=== PATIENT | female | born 1945 | race Caucasian/White ===

== ENCOUNTER → 2016-05-10 | Outpatient (CLI) | payer MEDICARE ==
[2016-05-10 12:39] LABS: CH 30.9; HCT 36.5 % (34.0-46.0); HDW 2.12; HGB 11.9 gm/dL (11.4-16.0); MCH 30.7 pg (25.0-35.0); MCHC 32.6 g/dL (31.0-37.0); MCV 94.2 fL (80.0-100.0); RBC 3.88 m/uL (3.80-5.40); RDW 13.3 % (11.5-15.5); WBC 3.9 k/uL (3.8-10.6)
[2016-05-10 12:43] LABS: ALT 37 U/L (9-52); AST 26 U/L (14-36); Alkaline Phosphatase 63 U/L (38-126); Anion Gap 10 mmol/L; Blood Urea Nitrogen 9 mg/dL (7-17); Calcium 9.2 mg/dL (8.4-10.2); Carbon Dioxide 30 mmol/L (22-30); Chloride 99 mmol/L (98-107); Glucose 92 mg/dL (74-99); Non-African American GFR(MDRD) >60 (>60 ml/min/1.73 sqM); Potassium 3.9 mmol/L (3.5-5.1); Sodium 139 mmol/L (137-145); Total Bilirubin 0.4 mg/dL (0.2-1.3)
== END | disposition home or self-care (01) ==
LOC: LABWHC1 11:31
PROVIDERS: ATTEND Psychiatry & Neurology Neurology
DX: T45.1X5S Adverse effect of antineoplastic and immunosuppressive drugs, sequela (principal)
CPT/HCPCS: 36415; 80053; 84165; 85027

== ENCOUNTER → 2016-12-13 | Outpatient (CLI) | payer MEDICARE ==
[2016-12-13 11:19] LABS: CH 30.4; HCT 36.7 % (34.0-46.0); HDW 1.99; HGB 12.4 gm/dL (11.4-16.0); MCH 31.3 pg (25.0-35.0); MCHC 33.8 g/dL (31.0-37.0); MCV 92.7 fL (80.0-100.0); Mean Platelet Volume 7.6; RBC 3.96 m/uL (3.80-5.40); WBC 4.3 k/uL (3.8-10.6)
[2016-12-13 11:23] LABS: ALT 32 U/L (9-52); AST 25 U/L (14-36); Alkaline Phosphatase 58 U/L (38-126); Anion Gap 9 mmol/L; Blood Urea Nitrogen 15 mg/dL (7-17); Calcium 9.4 mg/dL (8.4-10.2); Carbon Dioxide 30 mmol/L (22-30); Chloride 98 mmol/L (98-107); Glucose 88 mg/dL (74-99); Non-African American GFR(MDRD) >60 (>60 ml/min/1.73 sqM); Potassium 4.6 mmol/L (3.5-5.1); Sodium 137 mmol/L (137-145); Total Bilirubin 0.3 mg/dL (0.2-1.3); Total Protein 7.7 g/dL (6.3-8.2)
== END | disposition home or self-care (01) ==
LOC: LABWHC1 10:32
PROVIDERS: ATTEND Psychiatry & Neurology Neurology
DX: G35 Multiple sclerosis (principal); T50.995A Adverse effect of other drugs, medicaments and biological substances, initial encounter
CPT/HCPCS: 36415; 80053; 85027

== ENCOUNTER → 2017-01-26 | Outpatient (CLI) | payer MEDICARE ==
--- NOTE | 2017-01-26 14:05 | MM ---
Reason for exam: screening (asymptomatic). Last mammogram was performed 1 year and 1 month ago. History: Patient is postmenopausal and has history of breast cancer at age 62. Family history of breast cancer in maternal aunt at age 68. Benign left mammotome panel of the left breast, March 21, 2008. Mastectomy of the right breast, November 16, 2007. Excisional biopsy of the right breast, November 02, 2007. Malignant right mammotome panel of the right breast, October 26, 2007. Right Mammotome Panel of the right breast, October 10, 2005. Stereotactic core biopsy of the left breast, March 03, 2000. Benign stereotactic core biopsy of the right breast, September 03, 1998. Core biopsy of the left breast. Took hormonal contraceptives for 5 years beginning at age 20. Took antineoplastic for 5 years beginning at age 62. Physical Findings: A clinical breast exam by your physician is recommended on an annual basis and results should be correlated with mammographic findings. MG 3D Diag Mammo W/Cad LT CC and MLO view(s) were taken of the left breast. Prior study comparison: January 06, 2016, left breast MG diagnostic mammo LT w CAD. December 15, 2014, left breast MG diagnostic mammo LT w CAD. Scattered calcifications with no suspicious groups. No suspicious abnormality. Right mastectomy. No significant new findings when compared with previous films. These results were verbally communicated with the patient and result sheet given to the patient on 01/26/17. ASSESSMENT: Benign, BI-RAD 2 RECOMMENDATION: Follow-up diagnostic mammogram of the left breast in 1 year.
== END | disposition home or self-care (01) ==
LOC: RADMAMWWP 12:43
PROVIDERS: ATTEND Family Medicine
DX: Z08 Encounter for follow-up examination after completed treatment for malignant neoplasm (principal); Z85.3 Personal history of malignant neoplasm of breast
CPT/HCPCS: G0206; G0279

== ENCOUNTER → 2017-06-20 | Outpatient (CLI) | payer MEDICARE ==
[2017-06-20 15:01] LABS: Basophils % (A) 1 %; Eosinophils # (A) 0.2 k/uL (0-0.7); Eosinophils % (A) 6 %; HCT 37.6 % (34.0-46.0); HGB 11.8 gm/dL (11.4-16.0); Lymphocytes # (A) 0.6 k/uL (1.0-4.8); Lymphocytes % (A) 17 %; MCH 30.5 pg (25.0-35.0); MCHC 31.4 g/dL (31.0-37.0); MCV 97.3 fL (80.0-100.0); Mean Platelet Volume 8.3; Monocytes # (A) 0.3 k/uL (0-1.0); Monocytes % (A) 8 %; Neutrophils # (A) 2.3 k/uL (1.3-7.7); Neutrophils % (A) 65 %; Platelet Count 191 k/uL (150-450); RBC 3.87 m/uL (3.80-5.40); RDW 12.8 % (11.5-15.5); WBC 3.6 k/uL (3.8-10.6)
[2017-06-20 15:19] LABS: ALT 21 U/L (9-52); AST 21 U/L (14-36); Albumin 4.3 g/dL (3.5-5.0); Alkaline Phosphatase 58 U/L (38-126); Anion Gap 10 mmol/L; Blood Urea Nitrogen 8 mg/dL (7-17); Calcium 9.7 mg/dL (8.4-10.2); Carbon Dioxide 32 mmol/L (22-30); Chloride 97 mmol/L (98-107); Glucose 111 mg/dL (74-99); Sodium 139 mmol/L (137-145); Total Bilirubin 0.2 mg/dL (0.2-1.3); Total Protein 7.4 g/dL (6.3-8.2)
[2017-06-20 15:35] LABS: T4, Free (Free Thyroxine) 0.92 ng/dL (0.78-2.19)
== END | disposition home or self-care (01) ==
LOC: LABWHC1 12:48
PROVIDERS: ATTEND Psychiatry & Neurology Neurology
DX: G35 Multiple sclerosis (principal); R42 Dizziness and giddiness; Z79.899 Other long term (current) drug therapy
CPT/HCPCS: 36415; 80053; 82306; 84439; 84443; 85025

== ENCOUNTER → 2017-12-18 | Outpatient (CLI) | payer MEDICARE ==
[2017-12-20 11:11] LABS: Albumin 4.27 g/dL (3.80-4.90); Gamma Globulin 0.72 g/dL (0.70-1.50); Protein, Total 7.2 g/dL (6.2-8.2)
== END | disposition home or self-care (01) ==
LOC: LABWHC1 13:57
PROVIDERS: ATTEND Psychiatry & Neurology Neurology
DX: D47.2 Monoclonal gammopathy (principal)
CPT/HCPCS: 36415; 84165; 86334

== ENCOUNTER → 2018-03-12 | Outpatient (CLI) | payer MEDICARE ==
--- NOTE | 2018-03-12 10:34 | MM ---
Reason for exam: additional evaluation requested from prior study. Last mammogram was performed 1 year and 1 month ago. History: Patient is postmenopausal and has history of breast cancer at age 62. Family history of breast cancer in maternal aunt at age 68. Benign left mammotome panel of the left breast, March 21, 2008. Mastectomy of the right breast, November 16, 2007. Excisional biopsy of the right breast, November 02, 2007. Malignant right mammotome panel of the right breast, October 26, 2007. Right Mammotome Panel of the right breast, October 10, 2005. Stereotactic core biopsy of the left breast, March 03, 2000. Benign stereotactic core biopsy of the right breast, September 03, 1998. Core biopsy of the left breast. Took hormonal contraceptives for 5 years beginning at age 20. Took antineoplastic for 5 years beginning at age 62. Physical Findings: Nurse did not find any significant physical abnormalities on exam. MG 3D Diag Mammo W/Cad LT CC, MLO, and ML view(s) were taken of the left breast. Prior study comparison: January 26, 2017, left breast MG 3d diag mammo w/cad LT. January 06, 2016, left breast MG diagnostic mammo LT w CAD. There are scattered fibroglandular densities. Previous mammotome biopsy in the left breast. No significant new findings when compared with previous films. These results were verbally communicated with the patient and result sheet given to the patient on 03/12/18. ASSESSMENT: Benign, BI-RAD 2 RECOMMENDATION: Follow-up diagnostic mammogram of the left breast in 1 year.
== END | disposition home or self-care (01) ==
LOC: RADMAMWWP 09:57
PROVIDERS: ATTEND Family Medicine
DX: Z08 Encounter for follow-up examination after completed treatment for malignant neoplasm (principal); Z85.3 Personal history of malignant neoplasm of breast
CPT/HCPCS: 77065; G0279; 77061

== ENCOUNTER → 2018-12-05 | Outpatient (CLI) | payer MEDICARE ==
--- NOTE | 2018-12-06 08:19 | MR ---
EXAMINATION TYPE: MR brain/cspine wo/w DATE OF EXAM: 12/05/2018 COMPARISON: MR brain dated 12/16/2014 HISTORY: Headache TECHNIQUE: Multiplanar, multisequence images of the brain and brainstem, cervical spine is performed without and with IV contrast, utilizing 7 mL intravenous Gadavist . FINDINGS: White matter signal abnormalities have progressed on inversion recovery T2-weighted sequenc es, right frontal lesion on axial image 18 in the pericallosal, periventricular region has become spencer ewhat more confluent and increased in size to approximately 2.5 cm in AP dimension by 9 mm x 15 mm ex tending into the corpus callosum compared to prior when it measured 2.1 cm x 8 mm x 10 mm. There are again noted juxtacortical and subcortical lesions, approximate number of lesions is 40-50 as compared to previous exam where 20-25 were counted. Diffusion weighted images demonstrate no evidence of a re cent infarct or other diffusion abnormality. There is no extra-axial fluid collection. The ventricu lar system and cisternal spaces are normal in size and appearance. The brain volume is age appropria te. The pituitary, cervical medullary junction, cerebellopontine angles are normal. The craniocervical ju nction appears within normal limits. Post contrast images demonstrate no abnormal enhancement. The d ural venous sinuses appear patent. The visualized sinuses are clear and the globes are intact. There is increased signal present within the temporal bones similar to prior exam. Cervical spine MRI: There is multilevel spondylosis. Loss of disc height signal is present at C4-5, C 5-6 and C6-7, there is associated spondylosis and endplate discogenic marrow signal change. Cervical cord signal is maintained. C2-3: No significant abnormality C3-4: Minimal disc bulge posteriorly, no significant central stenosis or foraminal encroachment. C4-5: Lateral extension of endplate disc complex encroaches on the left neural foramen greater than r ight, posterior extension endplate disc complex causes mild anterior mass effect on the thecal sac. N o significant central stenosis. C5-6: Vertebral joint hypertrophy contributes to cause some left-sided foraminal encroachment. Herb Grower ior extension endplate disc complex causes minimal anterior mass effect on the thecal sac. No signifi cant central stenosis C6-7: Posterior extension of endplate disc complex causes anterior mass effect on the thecal sac, mil d central stenosis. There is some left-sided foraminal encroachment. C7-T1: Unremarkable. There is no significant enhancement following contrast administration. IMPRESSION: Degenerative disc disease, multilevel foraminal encroachment. IMPRESSION: There is been progression in size of the dominant right frontal white matter lesion and n umber of the foci of hyperintensity and inversion recovery and T2-weighted sequences within the white matter as described. Persistent inflammatory changes within the temporal bones, temporal bone CT may be of benefit.
== END | disposition home or self-care (01) ==
LOC: RADMRIMAIN 14:44
PROVIDERS: ATTEND Psychiatry & Neurology Neurology
DX: G35 Multiple sclerosis (principal)
CPT/HCPCS: 70553; 72156; A9585

== ENCOUNTER → 2019-03-22 | Outpatient (CLI) | payer MEDICARE ==
--- NOTE | 2019-03-25 08:51 | MM ---
Reason for exam: additional evaluation requested from prior study. Last mammogram was performed 1 year ago. History: Patient is postmenopausal and has history of breast cancer at age 62. Family history of breast cancer in maternal aunt at age 68. Benign left mammotome panel of the left breast, March 21, 2008. Mastectomy of the right breast, November 16, 2007. Excisional biopsy of the right breast, November 02, 2007. Malignant right mammotome panel of the right breast, October 26, 2007. Right Mammotome Panel of the right breast, October 10, 2005. Stereotactic core biopsy of the left breast, March 03, 2000. Benign stereotactic core biopsy of the right breast, September 03, 1998. Core biopsy of the left breast. Took hormonal contraceptives for 5 years beginning at age 20. Took antineoplastic for 5 years beginning at age 62. Physical Findings: Nurse did not find any significant physical abnormalities on exam. MG 3D Diag Mammo W/Cad LT CC and MLO view(s) were taken of the left breast. Prior study comparison: March 12, 2018, left breast MG 3d diag mammo w/cad LT. January 26, 2017, left breast MG 3d diag mammo w/cad LT. There are scattered fibroglandular densities. Benign appearing calcifications in the left breast. No suspicious abnormality. Left biopsy marker. No significant new findings when compared with previous films. These results were verbally communicated with the patient and result sheet given to the patient on 03/22/19. ASSESSMENT: Benign, BI-RAD 2 RECOMMENDATION: Follow-up diagnostic mammogram of the left breast in 1 year.
== END | disposition home or self-care (01) ==
LOC: RADMAMWWP 15:05
PROVIDERS: ATTEND Family Medicine
DX: Z08 Encounter for follow-up examination after completed treatment for malignant neoplasm (principal); Z85.3 Personal history of malignant neoplasm of breast; Z90.11 Acquired absence of right breast and nipple
CPT/HCPCS: 77065; G0279; 77061

== ENCOUNTER → 2020-04-28 | Outpatient (CLI) | payer MEDICARE ==
--- NOTE | 2020-04-28 14:17 | MM ---
Reason for exam: additional evaluation requested from prior study. Last mammogram was performed 1 year and 1 month ago. History: Patient is postmenopausal and has history of breast cancer at age 62. Family history of breast cancer in maternal aunt at age 68. Benign left mammotome panel of the left breast, March 21, 2008. Mastectomy of the right breast, November 16, 2007. Excisional biopsy of the right breast, November 02, 2007. Malignant right mammotome panel of the right breast, October 26, 2007. Right Mammotome Panel of the right breast, October 10, 2005. Stereotactic core biopsy of the left breast, March 03, 2000. Benign stereotactic core biopsy of the right breast, September 03, 1998. Core biopsy of the left breast. Took hormonal contraceptives for 5 years beginning at age 20. Took antineoplastic for 5 years beginning at age 62. Physical Findings: Nurse did not find any significant physical abnormalities on exam. MG 3D Diag Mammo W/Cad LT CC and MLO view(s) were taken of the left breast. Prior study comparison: March 22, 2019, left breast MG 3d diag mammo w/cad LT. March 12, 2018, left breast MG 3d diag mammo w/cad LT. There are scattered fibroglandular densities. No significant new findings when compared with previous films. These results were verbally communicated with the patient and result sheet given to the patient on 04/28/20. ASSESSMENT: Benign, BI-RAD 2 RECOMMENDATION: Routine screening mammogram of the left breast in 1 year.
--- NOTE | 2020-04-28 15:05 | BD ---
EXAMINATION TYPE: Axial Bone Density DATE OF EXAM: 04/28/2020 COMPARISON: NONE CLINICAL HISTORY: 74 YR OLD FEMALE.....ICD-10 CODE: B81.0 OSTEOPOROSIS Height: 60 Weight: 156 FRAX RISK QUESTIONS: Glucocorticoids (More than 3mos): YES (Ex: prednisone, prednisolone, methylprednisolone, dexamethasone, and hydrocortisone). RISK FACTORS HISTORY OF: Family History of Osteoporosis: UNKNOWN Postmenopausal woman: YES, AT AGE 51 Lost more than 2 inches in height since high school: YES Frequent falls: [place] Hyperparathyroidism: NO Adrenal Insufficiency: NO MEDICATIONS: Prednisone or other steroids: STEROIDAL NASAL SPRAY FOR ABOUT 5-6 YRS Additional Medications: BP MEDS, XANAX, REFLUX MEDS, STATIN FOR CHOLESTEROL, VIT D AND CALCIUM Additional History: HX OF RT BREAST CANCER, MASTECTOMY, HYPERTENSION, REFLUX, CHOLESTEROL EXAM MEASUREMENTS: Bone mineral densitometry was performed using the [employer] System. Bone mineral density as measured about the Lumbar spine is: ----- L1-L4(G/cm2): 1.193 T Score Values are as follows: ----- L1: -1.2 ----- L2: -1.1 ----- L3: 1.7 ----- L4: 0.4 ----- L1-L4: 0.1 Bone mineral density FIRST BONE DENSITY......BASELINE STUDY Bone mineral density about the R hip (g/cm2): 0.907 Bone mineral density about the L hip (g/cm2): 0.910 T Score values are as follows: -----R Neck: -1.6 -----L Neck: -2.0 -----R Total: -0.8 -----L Total: -0.8 Bone mineral density BASELINE STUDY FRAX%s: THERE IS A 19.6% CHANCE FOR A MAJOR OSTEOPOROTIC FX AND A 5.6% FOR HIP.....PROBABILITY FOR FX IN 10 YRS TIME IMPRESSION: Osteopenia (T Score between -2.5 and -1). There is slightly increased risk of fracture and the patient may be considered for treatment. Re-Screen 2-5 years. NOTE: T-SCORE=SD OF THE YOUNG ADULT MEAN.
== END | disposition home or self-care (01) ==
LOC: RADMAMWWP 13:22
PROVIDERS: ATTEND Family Medicine
DX: Z08 Encounter for follow-up examination after completed treatment for malignant neoplasm (principal); M81.0 Age-related osteoporosis without current pathological fracture; M85.80 Other specified disorders of bone density and structure, unspecified site; Z85.3 Personal history of malignant neoplasm of breast
CPT/HCPCS: 77080; 77065; G0279; 77061

== ENCOUNTER → 2021-07-09 | Outpatient (CLI) | payer MEDICARE ==
--- NOTE | 2021-07-13 09:58 | MM ---
Reason for exam: screening (asymptomatic). Last mammogram was performed 1 year and 2 months ago. History: Patient is postmenopausal and has history of breast cancer at age 62. Family history of breast cancer in maternal aunt at age 68. Benign left mammotome panel of the left breast, March 21, 2008. Mastectomy of the right breast, November 16, 2007. Excisional biopsy of the right breast, November 02, 2007. Malignant right mammotome panel of the right breast, October 26, 2007. Right Mammotome Panel of the right breast, October 10, 2005. Stereotactic core biopsy of the left breast, March 03, 2000. Benign stereotactic core biopsy of the right breast, September 03, 1998. Core biopsy of the left breast. Took hormonal contraceptives for 5 years beginning at age 20. Took antineoplastic for 5 years beginning at age 62. Physical Findings: A clinical breast exam by your physician is recommended on an annual basis and results should be correlated with mammographic findings. MG 3D Scr Jerrica Unilateral W/Cad CC and MLO view(s) were taken of the left breast. Prior study comparison: April 28, 2020, left breast MG 3d diag mammo w/cad LT. March 22, 2019, left breast MG 3d diag mammo w/cad LT. There are scattered fibroglandular densities. Benign appearing calcifications in the left breast. Previous mammotome biopsy in the left breast. No significant changes when compared with prior studies. ASSESSMENT: Benign, BI-RAD 2 RECOMMENDATION: Routine screening mammogram of the left breast in 1 year.
== END | disposition home or self-care (01) ==
LOC: RADMAMWWP 14:04
PROVIDERS: ATTEND Internal Medicine
DX: Z12.31 Encounter for screening mammogram for malignant neoplasm of breast (principal)
CPT/HCPCS: 77067

== ENCOUNTER → 2022-09-29 | Outpatient (CLI) | payer MEDICARE ==
--- NOTE | 2022-09-29 15:08 | MR ---
EXAMINATION TYPE: MR brain wo/w con DATE OF EXAM: 09/29/2022 1:33 PM CLINICAL INDICATION:Female, 77 years old with history of G35 MULTIPLE SCLEROSIS; Left shoulder pain a nd limited range of motion due to pushing injury at work. COMPARISON: 03/27/2015 TECHNIQUE: Multi planar, multi sequence imaging was performed through the brain including: T1, T2, In version recovery, susceptibility weighted imaging and gradient echo imaging and Diffusion weighted im aging. The patient was then given intravenous contrast and multi planar, T1 fat-saturation images wer e obtained. IV Contrast: 7 cc Gadavist FINDINGS: Scattered white matter changes throughout the brain. Overall many of these white matter changes appea r slightly larger than prior. Example includes left frontal lobe 4 mm, previously 2-3 mm series 702 i mage 25 left frontal lobe 5 mm, previously 3 mm image 24 right periventricular white matter measuring 9 mm, previously 7 mm image 22 right frontal lobe 5 mm, previously 2 mm image 20. Additional scatter ed foci throughout the brain. The whitfield-white junctions, ventricular system, basal cisterns appear unremarkable. Diffusion-weighted imaging shows no evidence of restricted diffusion to suggest acute/subacute infarct. Intracranial art erial flow voids are maintained. Midline structures show no abnormality. The susceptibility weighted images do not reveal any evidence for micro-hemorrhage. After administration of gadolinium, no abnor mal enhancement is seen. The bone marrow signal is within normal limits. Paranasal sinuses and mastoid air cells: No significant paranasal sinus disease. Visualized orbits: Bilateral aphakia IMPRESSION: 1. Mild progression of white matter changes compared to 2014, compatible with known multiple scleros is. No evidence of active demyelination on today's exam. 2. No evidence of intracranial mass, acute/subacute infarct, or abnormal enhancement.
== END | disposition home or self-care (01) ==
LOC: RADMRIMAIN 12:00
PROVIDERS: ATTEND Psychiatry & Neurology Neurology
DX: G35 Multiple sclerosis (principal)
CPT/HCPCS: 70553; A9585

== ENCOUNTER → 2022-10-04 | Outpatient (CLI) | payer MEDICARE ==
--- NOTE | 2022-10-05 10:55 | MM ---
Reason for Exam: Screening (asymptomatic). Last mammogram was performed 1 year(s) and 2 month(s) ago. Patient History: Menarche at age 14. First Full-Term at age 20. Postmenopausal. Breast cancer, age 62. Hormonal Contraceptives for 5 years from age 20 until age 25. 11/16/2007, Mastectomy on the Right side. 11/02/2007, Excisional Biopsy on the Right side. Core Biopsy on the Left side. 03/21/2008, Benign Core Biopsy on the left side. 10/26/2007, Malignant Core Biopsy on the right side. 10/10/2005, Core Biopsy on the Right side. 03/03/2000, Stereotactic Core Biopsy on the Left side. 09/03/1998, Benign Stereotactic Core Biopsy on the right side. Maternal aunt had breast cancer, age 68. Prior Study Comparison: 03/22/2019 Left Diagnostic Mammogram, [facility]. 04/28/2020 Left Diagnostic Mammogram, [facility]. 07/09/2021 Bilateral Screening Mammogram, [facility]. Tissue Density: Left: There are scattered fibroglandular densities. Findings: There are 2 biopsy clips in the left breast redemonstrated. There are benign-appearing tiny rounded and vascular calcification in the left breast redemonstrated. There is no suspicious new group of microcalcifications or new suspicious mass in the left breast. Overall Assessment: Benign, BI-RAD 2 Management: Screening Mammogram of the left breast in 1 year. . Patient should continue monthly self-breast exams. A clinical breast exam by your physician is recommended on an annual basis. This exam should not preclude additional follow-up of suspicious palpable abnormalities. Note on Bree scores and lifetime risk: 1. A Bree score greater than 3% is considered moderate risk. If this is the case, consider specialist referral to assess eligibility for a risk reducing agent. 2. If overall lifetime risk for the development of breast cancer is 20% or higher, the patient may qualify for future screening with alternating mammogram and breast MRI. Electronically signed and approved by: Adolfo Jackson M.D.
== END | disposition home or self-care (01) ==
LOC: RADMAMWWP 11:30
PROVIDERS: ATTEND Family Medicine
DX: Z12.31 Encounter for screening mammogram for malignant neoplasm of breast (principal); Z78.0 Asymptomatic menopausal state
CPT/HCPCS: 77067

== ENCOUNTER → 2024-02-26 | Outpatient (CLI) | payer MEDICARE ==
--- NOTE | 2024-02-27 09:53 | MM ---
Reason for Exam: Screening (asymptomatic). Last mammogram was performed 1 year(s) and 5 month(s) ago. Patient History: Menarche at age 14. First Full-Term at age 20. Postmenopausal. Breast cancer, right, age 62. Hormonal Contraceptives for 5 years from age 20 until age 25. 11/16/2007, Mastectomy on the Right side. 11/02/2007, Excisional Biopsy on the Right side. Core Biopsy on the Left side. 03/21/2008, Benign Core Biopsy on the left side. 10/26/2007, Malignant Core Biopsy on the right side. 10/10/2005, Core Biopsy on the Right side. 03/03/2000, Stereotactic Core Biopsy on the Left side. 09/03/1998, Benign Stereotactic Core Biopsy on the right side. Maternal aunt had breast cancer, age 68. Prior Study Comparison: 04/28/2020 Left Diagnostic Mammogram, [facility]. 07/09/2021 Bilateral Screening Mammogram, [facility]. 10/04/2022 Left MG 3D scr sarah unilateral w/cad., [facility]. Tissue Density: Left: There are scattered areas of fibroglandular density. Findings: Analyzed By CAD. There is no suspicious group of microcalcifications or new suspicious mass in either breast. Overall Assessment: Benign, BI-RAD 2 Management: Screening Mammogram of both breasts in 1 year. . Patient should continue monthly self-breast exams. A clinical breast exam by your physician is recommended on an annual basis. This exam should not preclude additional follow-up of suspicious palpable abnormalities. Note on Bree scores and lifetime risk: 1. A Bree score greater than 3% is considered moderate risk. If this is the case, consider specialist referral to assess eligibility for a risk reducing agent. 2. If overall lifetime risk for the development of breast cancer is 20% or higher, the patient may qualify for future screening with alternating mammogram and breast MRI. [facility], , 02/27/2024 9:49 AM. Electronically signed and approved by: Renan Martinez M.D. Radiolog[facility]
== END | disposition home or self-care (01) ==
LOC: RADMAMWWP 14:01
PROVIDERS: ATTEND Family Medicine
CPT/HCPCS: 77067